=== PATIENT | female | born 1970 | race Caucasian/White ===

== ENCOUNTER 2017-06-12 12:56 | Emergency (ER) | payer OTHER ==
[2017-06-12 13:04] VITALS: BP 113/63
--- NOTE | 2017-06-12 13:13 | ED ---
Bite Injury/Animal - HPI Summary HPI Summary: 47-year-old female presents with tick bite on right hip since last night. She states she is unsure how long the tick was there. She removed the tick last night. She states it took some effort removed. She states she has noticed some redness around the tick bite. No streaking. No fevers. No bull's-eye rash. She is not allergic to doxycycline. She has no medical conditions. - History of Current Complaint Chief Complaint: ROXANNEkin Stated Complaint: TICK BITE Time Seen by Provider: 06/12/17 13:08 Pain Intensity: 1 - Allergies/Home Medications Allergies/Adverse Reactions: Allergies Allergy/AdvReac Type Severity Reaction Status Date / Time No Known Allergies Allergy Verified 12/07/14 13:06 Home Medications: Home Medications Slovak Herbs 1 tab PO DAILY 06/12/17 [History] L.acidoph,Paracasei, B.lactis [Probiotic] 1 each PO 06/12/17 [History] Multivitamin [Multivitamins] 1 cap PO 06/12/17 [History] Prebiotic 1 tab PO DAILY 06/12/17 [History] PMH/Surg Hx/FS Hx/Imm Hx Endocrine/Hematology History: Denies: Hx Anticoagulant Therapy Respiratory History: Denies: Hx Asthma Infectious Disease History: No Infectious Disease History: Denies: Traveled Outside the [place] in Last 30 Days - Family History Known Family History: Negative: Diabetes - Social History Alcohol Use: Daily Substance Use Type: Reports: None Smoking Status (MU): Never Smoked Tobacco Review of Systems Negative: Fever Negative: Chest Pain Negative: Shortness Of Breath Positive: Other - tick bite right hip All Other Systems Reviewed And Are Negative: Yes Physical Exam Triage Information Reviewed: Yes Vital Signs On Initial Exam: Initial Vitals Temp Pulse Resp BP Pulse Ox 97.7 F 79 18 113/63 98 06/12/17 12:59 06/12/17 12:59 06/12/17 12:59 06/12/17 12:59 06/12/17 12:59 Vital Signs Reviewed: Yes Appearance: Positive: Well-Appearing Skin: Positive: Warm, Dry, Other - tick bite with surrounding erythema that is not warm to touch Head/Face: Positive: Normal Head/Face Inspection Eyes: Positive: Normal, Conjunctiva Clear Respiratory/Lung Sounds: Positive: Clear to Auscultation, Breath Sounds Present Cardiovascular: Positive: Normal, RRR Musculoskeletal: Positive: Normal Neurological: Positive: Normal Psychiatric: Positive: Normal Diagnostics - Vital Signs Vital Signs Temp Pulse Resp BP Pulse Ox 06/12/17 12:59 97.7 F 79 18 113/63 98 - Laboratory Lab Statement: Any lab studies that have been ordered have been reviewed, and results considered in the medical decision making process. Bite Injury Course/Dx - Course Course Of Treatment: 47-year-old female presents with tick bite on right hip since last night. She states she is unsure how long the tick was there. She removed the tick last night. She states it took some effort removed. She states she has noticed some redness around the tick bite. No streaking. No fevers. No bull's-eye rash. She is not allergic to doxycycline. She has no medical conditions. has tick bite on right hip that has some red irritation around it. no sign of cellulitis. will ppx treat with doxycycline as is given with 72 hours. patient understand and agrees with plan. - Diagnoses Differential Diagnosis/HQI/PQRI: Positive: Other - tick, lyme, cellulitis Provider Diagnosis: Tick bite Discharge - Sign-Out/Discharge Documenting (check all that apply): Discharge/Admit/Transfer - Discharge Plan Condition: Good Disposition: HOME Prescriptions: DOXYcycline CAP(*) [DOXYcycline 100MG CAP(*)] 200 mg PO DAILY #2 cap Patient Education Materials: Tick Bite (ED) Referrals: Carito Isaac MD [Primary Care Provider] - Additional Instructions: Take one time dose of doxycycline 2 tablets to prophylactically treat for Lyme disease Return to ED if develop any rash or fever or any new or worsening symptoms - Billing Disposition and Condition Condition: GOOD Disposition: HOME
== END 2017-06-12 13:19 | disposition home or self-care (01) ==
LOC: UCEAST 12:56
DX: S70.261A Insect bite (nonvenomous), right hip, initial encounter (principal); W57.XXXA Bitten or stung by nonvenomous insect and other nonvenomous arthropods, initial encounter; Y93.9 Activity, unspecified; Y92.9 Unspecified place or not applicable
CPT/HCPCS: 99211; G0463

== ENCOUNTER 2017-11-17 10:54 | Emergency (ER) | payer OTHER ==
[2017-11-17 11:43] VITALS: BP 108/78
--- NOTE | 2017-11-17 11:55 | UC ---
Lower Extremity/Ankle HPI - HPI Summary HPI Summary: 47 yo female presents with right foot puncture wound and a right 5th toe injury. She tells me that about 3 weeks ago she dropped something heavy onto her right 5th toe. Had immediate pain. She thinks she probably broke it, but was still able to walk and didn't think there was much treatment that could be offered anyway - so she iced the toe and wore more comfortable shoes. Today she reports that her toe is getting better, but is still painful to wear certain shoes. 3 days ago she was walking in the [place] and stepped on a branch - sustained a puncture wound to her right heel. Since that time the area has increased in redness and she has a streak going up her lateral ankle. Denies fever, chills. She is unsure the date of her last tetanus shot - History of Current Complaint Chief Complaint: Paco Stated Complaint: FOOT INJURY Time Seen by Provider: 11/17/17 11:54 Hx Obtained From: Patient Hx Last Menstrual Period: 11/14/17 Severity Initially: Mild Severity Currently: Mild Pain Intensity: 4 Pain Scale Used: 0-10 Numeric - Allergies/Home Medications Allergies/Adverse Reactions: Allergies Allergy/AdvReac Type Severity Reaction Status Date / Time No Known Allergies Allergy Verified 11/17/17 11:43 Home Medications: Home Medications Escitalopram Oxalate [Lexapro 10 mg] 1 tab PO DAILY 11/17/17 [History Confirmed 11/17/17] PMH/Surg Hx/FS Hx/Imm Hx Psychological History: Anxiety, Depression Other History Of: Negative For: Anticoagulant Therapy - Surgical History Surgical History: None - Family History Known Family History: Negative: Diabetes - Social History Occupation: Employed Full-time Lives: With Family Alcohol Use: Occasionally Substance Use Type: None Smoking Status (MU): Never Smoked Tobacco Review of Systems Constitutional: Negative Skin: Other - Redness to right heel Respiratory: Negative Cardiovascular: Negative Neurovascular: Negative Musculoskeletal: Other: - Right 5th toe pain Neurological: Negative Psychological: Negative All Other Systems Reviewed And Are Negative: Yes Physical Exam - Summary Physical Exam Summary: GENERAL: NAD. WDWN. No pain distress. SKIN: Right heel with 1mm puncture wound. 1.0cm of surrounding erythema with linear streak extending to medial malleolus. Mild TTP. No FB, bleeding, or drainage. NECK: Supple. Nontender. No lymphadenopathy. CHEST: No accessory muscle use. Breathing comfortably and in no distress. CV: Pulses intact. Cap refill <2seconds MSK: Right 5th toe: FROM. Mild TTP about whole toe. No obvious deformity. No MT pain. NEURO: Alert. PSYCH: Age appropriate behavior. Triage Information Reviewed: Yes Vital Signs: Initial Vital Signs Temp 98.3 F 11/17/17 11:40 Pulse 74 11/17/17 11:40 Resp 18 11/17/17 11:40 BP 108/78 11/17/17 11:40 Pulse Ox 100 11/17/17 11:40 Vital Signs Reviewed: Yes Lower Extremity Course/Dx - Course Course Of Treatment: tdap updated today. 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 Advised that this could be painful for some time - likely ~6 weeks. Dev taped today and advised to continue icing and wearing comfortable footwear. She also has an infection around the puncture site. Will place her on Keflex and have her f/u if her symptoms do not improve. - Differential Dx/Diagnosis Provider Diagnoses: Right foot puncture wound. Right 5th toe pain Discharge - Sign-Out/Discharge Documenting (check all that apply): Patient Departure All imaging exams completed and their final reports reviewed: No Studies - Discharge Plan Condition: Stable Disposition: HOME Prescriptions: Cephalexin CAP* [Keflex CAP*] 500 mg PO TID #21 cap Patient Education Materials: Puncture Wound (DC) Referrals: Carito Isaac MD [Primary Care Provider] - Additional Instructions: If you develop a fever, shortness of breath, chest pain, new or worsening symptoms - please call your PCP or go to the ED. - Billing Disposition and Condition Condition: STABLE Disposition: Home
[2017-11-17] MEDS ORDERED: Tetan/Diph/Pertus SYR(Tdap)* 0.5 ML SYR(BOOSTRIX) use SYR IM ONE (12:03)
== END 2017-11-17 12:17 | disposition home or self-care (01) ==
LOC: UCEAST 10:54
DX: S91.331A Puncture wound without foreign body, right foot, initial encounter (principal); M79.674 Pain in right toe(s); W20.8XXA Other cause of strike by thrown, projected or falling object, initial encounter; Y92.9 Unspecified place or not applicable
CPT/HCPCS: 90715; 99212; G0463

== ENCOUNTER 2018-06-16 08:55 | Emergency (ER) | payer OTHER ==
[2018-06-16] MEDS ORDERED: Morphine 4 MG/ML VIAL (1 ml) 4 MG/ML VIAL IV ONE (09:13)
[2018-06-16] MEDS ORDERED: NS 0.9% 1000 ML** 1,000 ML IV ONE (09:13)
[2018-06-16] MEDS ORDERED: Ondansetron INJ* 2 MG/ML VIAL IV ONE (09:14)
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
[2018-06-16 09:42] LABS: ABS Basophils 0 10^3/ul (0-0.2); ABS Eosinophils 0.1 10^3/ul (0-0.6); ABS Lymphocytes 1.4 10^3/ul (1.0-4.8); ABS Monocytes 0.4 10^3/ul (0-0.8); ABS Nucleated RBC 0 10^3/ul; Eosinophil % 1.2 %; Hematocrit 46 % (33-41); Lymphocyte % 27.8 %; Mean Corpuscular HGB Conc 33 g/dL (31-36); Mean Corpuscular Hemoglobin 29 pg (27-31); Mean Corpuscular Volume 87 fL (80-97); Mean Platelet Volume 8.2 fL (7.4-10.4); Nucleated Red Blood Cells % 0.1; Platelet Count 246 10^3/uL (150-450); Red Blood Count 5.23 10^6 /uL (3.70-4.87); Red Cell Distribution Width 14 % (10.5-15); White Blood Count 4.9 10^3/uL (3.5-10.8)
[2018-06-16 09:51] LABS: Albumin 4.4 g/dL (3.2-5.2); Albumin/Globulin Ratio 2.2 (1-3); BUN/Creatinine Ratio 17.5 (8-20); Calcium 9.1 mg/dL (8.6-10.3); EGFR African American 92.2 (>60); EGFR Non-African American 76.2 (>60); Magnesium 1.8 mg/dL (1.9-2.7); Potassium 4.1 mmol/L (3.5-5.0); Total Bilirubin 0.6 mg/dL (0.2-1.0); Total Protein 6.4 g/dL (6.4-8.9)
[2018-06-16] MEDS ORDERED: Ketorolac INJ* 30 MG/ML 1 ML VIAL IV PUSH ONE (12:22)
[2018-06-16] MEDS ORDERED: Ondansetron ODT TAB* 4 MG PO ONE (12:23)
[2018-06-16] MEDS ORDERED: Bacitracin OINTMENT* 0.5% 0.5 oz TUBE ONE (13:18)
[2018-06-16 14:12] VITALS: BP 114/72
== END 2018-06-16 14:33 | disposition home or self-care (01) ==
LOC: ED 08:55
DX: S82.142A Displaced bicondylar fracture of left tibia, initial encounter for closed fracture (principal); S40.012A Contusion of left shoulder, initial encounter; V28.0XXA Motorcycle driver injured in noncollision transport accident in nontraffic accident, initial encounter; Y92.414 Local residential or business street as the place of occurrence of the external cause; M19.012 Primary osteoarthritis, left shoulder; M25.462 Effusion, left knee; M17.12 Unilateral primary osteoarthritis, left knee; M47.892 Other spondylosis, cervical region; M48.02 Spinal stenosis, cervical region
CPT/HCPCS: 36415; 70450; 71046; 72125; 80053; 83690; 83735; 85025; 96361; 96374; 96375; 99284; A9270-GY; J1885; J2270; J2405; Q9967

== ENCOUNTER 2018-06-30 05:48 | Day surgery (SDC) | payer OTHER ==
[~2018-06-30 05:48] MED LIST: Buffered Lidocaine 1% SYRIN* 1 ML/SYRINGE INTRADERM ONE
[2018-06-30] MEDS ORDERED: Lactated Ringers 1000 ML Bag* 1,000 ML IV SCH (06:00)
[2018-06-30] MEDS ORDERED: Sodium Citrate/Citric Acid* 15 ML UDC PO ONE (06:00)
[2018-06-30] MEDS ORDERED: Sodium Citrate/Citric Acid* 15 ML UDC ONE (06:02)
[2018-06-30] MEDS ORDERED: ceFAZolin 2 GM PREMIX in ORs 2 GM/50 ML BAG IVPB ONE (06:02)
[2018-06-30] MEDS ORDERED: fentaNYL* 50 MCG/ML 2 ML VIAL (100 MCG VIAL) ONE ×4 (07:26→12:07)
[2018-06-30] MEDS ORDERED: Midazolam* 1 MG/ML 2 ML VIAL (2 MG) ONE (07:26)
[2018-06-30] MEDS ORDERED: Bupivacaine 0.25% W/EPI* 10 ML SDV ONE (08:08)
[2018-06-30] MEDS ORDERED: EPINEPHRINE 1 MG/ML 1 ML VIAL ONE (08:08)
[2018-06-30] MEDS ORDERED: Acetaminophen IV 1GM/100ML * 1,000 MG/100 ML VIAL IVPB ONE (08:43)
[2018-06-30] MEDS ORDERED: Naloxone* 0.4 MG/ML 1 ML VIAL IV PRN (08:43)
[2018-06-30] MEDS ORDERED: Lidocaine 2% PF * 5 ML VIAL ONE (11:04)
[2018-06-30] MEDS ORDERED: Propofol* 10 MG/ML 20 ML BTL ONE (11:04)
[2018-06-30] MEDS ORDERED: Acetaminophen IV 1GM/100ML * 100 ML ONE (11:18)
[2018-06-30] MEDS: fentaNYL* 50 MCG/ML 2 ML VIAL (100 MCG VIAL) IV PRN ×3 (11:26→12:08)
[2018-06-30] MEDS ORDERED: DiMENhydriNATE IV* 50 MG/ML VIAL ONE (11:44)
[2018-06-30] MEDS ORDERED: Scopolamine 1.5 mg* PATCH ONE (11:44)
[2018-06-30] MEDS ORDERED: HYDROmorphone INJ1* 1 MG/ML SYRINGE ONE (12:14)
[2018-06-30] MEDS ORDERED: oxyCODONE/Acetamin 5/325 MG* TAB ONE ×2 (13:28→14:49)
[2018-06-30 14:34] VITALS: BP 158/96
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
== END 2018-06-30 15:21 | disposition home or self-care (01) ==
LOC: OR 05:48
PROVIDERS: ATTEND Orthopaedic Surgery
DX: S83.512A Sprain of anterior cruciate ligament of left knee, initial encounter (principal); S83.282A Other tear of lateral meniscus, current injury, left knee, initial encounter; S83.242A Other tear of medial meniscus, current injury, left knee, initial encounter; V29.9XXA Motorcycle rider (driver) (passenger) injured in unspecified traffic accident, initial encounter; Y92.9 Unspecified place or not applicable
CPT/HCPCS: 81025; A9270-GY; C1713; C1776; J0690; J1170; J1240; J2250; J2704; J3010